=== PATIENT | female | born 1940 | race Caucasian/White ===

== ENCOUNTER 2016-12-20 20:33 | Emergency (ER) | payer MEDICARE ==
[~2016-12-20] VITALS: Ht 162.6 cm; Wt 62.0 kg
[2016-12-20 20:41] VITALS: Ht 162.6 cm; Wt 62.0 kg
[2016-12-20 21:40] LABS: ADD SCAN DIFF NO
[2016-12-20 21:42] LABS: BASOPHILS % 0.5 % (0.0-2.0); EOSINOPHILS # 0.2 10^3/ul (0.0-0.5); EOSINOPHILS % 2.8 % (0.0-7.0); HEMATOCRIT 38.2 % (37.0-47.0); HEMOGLOBIN 11.6 g/dl (12.0-16.0); LYMPHOCYTES # 1.2 10^3/ul (0.8-2.9); LYMPHOCYTES % 15.6 % (15.0-51.0); MEAN CORPUSCULAR HEMOGLOBIN 24.3 pg (29.0-33.0); MEAN CORPUSCULAR HGB CONC 30.4 g/dl (32.0-37.0); MEAN CORPUSCULAR VOLUME 80.1 fl (82.0-101.0); MEAN PLATELET VOLUME 9.9 fl (7.4-10.4); MONOCYTE # 0.5 10^3/ul (0.3-0.9); MONOCYTES % 6.4 % (0.0-11.0); NEUTROPHIL # 5.9 10^3/ul (1.6-7.5); NEUTROPHILS % 74.4 % (39.0-77.0); PLATELET COUNT 239 10^3/UL (140-415); RED BLOOD COUNT 4.77 10^6/ul (4.20-5.40); RED CELL DISTRIBUTION WIDTH 17.8 % (11.5-14.5)
[2016-12-20 21:54] LABS: ALBUMIN 4.3 g/dl (3.3-4.9)
[2016-12-20 21:55] LABS: POTASSIUM 3.8 mmol/L (3.5-5.1)
[2016-12-20 21:57] LABS: ALBUMIN/GLOBULIN RATIO 1.26; BILIRUBIN,INDIRECT 0.3 mg/dl (0-1.1); BILIRUBIN,TOTAL 0.3 mg/dl (0.2-1.3); CREATININE 1.1 mg/dl (0.44-1.00); TOTAL PROTEIN 7.7 g/dl (6.1-8.1)
[2016-12-20 21:58] LABS: CALCIUM 9.4 mg/dl (8.4-10.2)
[2016-12-20] MEDS ORDERED: SOD CHLORIDE 0.9% 500 ML IV ONE (22:00)
[2016-12-20 22:26] LABS: URINE BLOOD (Dip) POC Negative (NEGATIVE)
[2016-12-20] MEDS ORDERED: SOD CHLORIDE 0.9% 100 ML ONE (22:39)
[2016-12-20] MEDS ORDERED: IODIXANOL LOCM 100 ML BTL ONE (22:39)
--- NOTE | 2016-12-20 23:12 | RADRPT ---
PROCEDURE: CT abdomen and pelvis with intravenous contrast. CLINICAL INDICATION: Pain. TECHNIQUE: CT of the abdomen/pelvis was performed utilizing axial images with reconstructions in s agittal and coronal planes after uneventful administration of 100 cc Omnipaque 300. The administered radiation dose is CTDI 8.9 mGy, DLP 466 mGy-cm. COMPARISON: No pertinent prior examinations were submitted for comparison. FINDINGS: Visualized Chest: There is moderate cardiomegaly. Some mitral valvular calcifications are noted. Th ere is mild atelectasis within the left lower lobe. Abdomen: The spleen, pancreas, gallbladder,and adrenal glands are unremarkable. The liver is diffusely dec reased in attenuation, compatible with hepatic steatosis. Prior cholecystectomy is noted. There is a small hyperenhancing focus within the anterior aspect of the right hepatic lobe, possibly a small f lash filling hemangioma. The kidneys are without hydronephrosis. No definite urinary calculi are seen. Small bilateral renal cysts are noted. There is no evidence of bowel obstruction. The appendix is not seen. There is no evidence of acute appendicitis. No intra-abdominal free air is seen. Several diverticula are noted along the sigmoi d colon without evidence of diverticulitis. There is no evidence of intra-abdominal adenopathy or free fluid. Vascular calcifications are noted within the aorta and its branches. There is some mild ectasia of the infrarenal abdominal aorta. Th is measures up to 2.6 cm. Pelvis: Prior hysterectomy is noted. The urinary bladder is unremarkable. There is no pelvic adenopathy of free fluid. Osseous structures: Unremarkable. IMPRESSION: No acute findings. Hepatic steatosis. Sigmoid colonic diverticulosis. Mild ectasia of the infrarenal abdominal aorta. RPTAT: HIKT .Esau Carey MD, Date Time Electronically viewed and signed by .Esau Carey MD, on 12/20/2016 23:12 .T/
[2016-12-20] MEDS ORDERED: NITR-58 PO (23:32)
--- NOTE | 2016-12-20 23:52 | ERD ---
ER Documentation Chief Complaint Date/Time DATE: 12/20/16 TIME: 23:42 Chief Complaint DIARRHEA SINCE YESTERDAY AND PT FEELS LIKE RECTUM PROLAPSING HPI This is a 76-year-old female presenting to the emergency department for abdominal pain diarrhea 2 days. Patient states she was constipated therefore she took a stool softener and since then she has had diarrhea patient states she has had about 20 bowel movement since yesterday.. Patient also states that with each bowel movement she feels like something is coming out of her rectum. Patient has history of hemorrhoids and believes this could be what is coming out. Patient states she has been told that she needs a procedure done for her hemorrhoid treatment. Patient states that due to the diarrhea she feels dehydrated. Patient denies dizziness, weakness or fatigue. No fevers or chills. No back pain or chest pain. No shortness of breath or difficulty breathing. No difficulty urinating ROS All systems reviewed and are negative except as per history of present illness. Medications Home Meds Active Scripts Nitrofurantoin Monohyd Macrocr* (Macrobid*) 100 Mg Capsr, 100 MG PO BID for 5 Days, CAP Prov:NATHANAEL PHELPS NP 12/20/16 Allergies Allergies: Coded Allergies: diphenhydramine (Verified Allergy, Intermediate, 12/20/16) Penicillins (Verified Allergy, Unknown, 09/22/07) codeine (Verified Allergy, Unknown, 09/22/07) PMhx/Soc History of Surgery: Yes (CABG) Anesthesia Reaction: No Hx Neurological Disorder: No Hx Respiratory Disorders: No Hx Cardiac Disorders: Yes (HTN) Hx Psychiatric Problems: No Hx Miscellaneous Medical Probl: No Hx Alcohol Use: No Hx Substance Use: No Hx Tobacco Use: No Smoking Status: Never smoker Physical Exam Vitals Vital Signs Date Time Temp Pulse Resp B/P Pulse Ox O2 Delivery O2 Flow Rate FiO2 12/20/16 21:53 75 17 128/63 97 Room Air 12/20/16 20:41 97.4 90 18 147/73 97 Physical Exam Const: No acute distress, alert Head: Atraumatic Eyes: Normal Conjunctiva ENT: Normal External Ears, Nose and Mouth. Neck: Full range of motion..~ No meningismus. Resp: Clear to auscultation bilaterally. No wheezing, rhonchi or crackles. Cardio: Regular rate and rhythm, no murmurs Abd: Soft, non distended. Normal bowel sounds. Right lower quadrant tenderness to palpation. No rebound tenderness. Negative Ariza sign. Skin: No petechiae or rashes Back: No midline or flank tenderness Ext: No cyanosis, or edema Neur: Awake and alert Psych: Normal Mood and Affect Result Diagram: 12/20/16212812/20/162128 Results 24 hrs Laboratory Tests Test 12/20/16 21:29 12/20/16 22:24 Alanine Aminotransferase (ALT/SGPT) 17IU/L Albumin 4.3g/dl Albumin/Globulin Ratio 1.26 Alkaline Phosphatase 83IU/L Anion Gap 21 Aspartate Amino Transf (AST/SGOT) 22IU/L Basophils # 0.010^3/ul Basophils % 0.5% Blood Urea Nitrogen 20mg/dl Calcium Level 9.4mg/dl Carbon Dioxide Level 17mmol/L Chloride Level 110mmol/L Creatinine 1.10mg/dl Direct Bilirubin 0.00mg/dl Eosinophils # 0.210^3/ul Eosinophils % 2.8% Globulin 3.40g/dl Glucose Level 124mg/dl Hematocrit 38.2% Hemoglobin 11.6g/dl Indirect Bilirubin 0.3mg/dl Lipase 202U/L Lymphocytes # 1.210^3/ul Lymphocytes % 15.6% Mean Corpuscular Hemoglobin 24.3pg Mean Corpuscular Hemoglobin Concent 30.4g/dl Mean Corpuscular Volume 80.1fl Mean Platelet Volume 9.9fl Monocytes # 0.510^3/ul Monocytes % 6.4% Neutrophils # 5.910^3/ul Neutrophils % 74.4% Nucleated Red Blood Cells # 0.010^3/ul Nucleated Red Blood Cells % 0.0/100WBC Platelet Count 15306^3/UL Potassium Level 3.8mmol/L Red Blood Count 4.7710^6/ul Red Cell Distribution Width 17.8% Sodium Level 144mmol/L Total Bilirubin 0.3mg/dl Total Protein 7.7g/dl White Blood Count 8.010^3/ul Bedside Urine Blood Negative Bedside Urine Glucose (UA) Negative Bedside Urine Ketones (LAB) Negative Bedside Urine Leukocyte Esterase (L 2+ Bedside Urine Nitrite (LAB) Negative Bedside Urine Protein (LAB) Trace Bedside Urine pH (LAB) 5.5 Current Medications Medications (Trade) Dose Ordered Sig/Justice Route PRN Reason Start Time Stop Time Status Last Admin Dose Admin Sodium Chloride (NS) 500 ml @ 500 mls/hr Q1H ONCE IV 12/20/16 22:00 12/20/16 22:59 DC 12/20/16 21:51 IV Flush 10 ml 10 ml STK-MED ONCE .ROUTE 12/20/16 22:39 12/20/16 22:40 DC Sodium Chloride (NS) 100 ml @ ud STK-MED ONCE .ROUTE 12/20/16 22:39 12/20/16 22:40 DC Iodixanol (Visipaque Locm) 100 ml STK-MED ONCE .ROUTE 12/20/16 22:39 12/20/16 22:40 DC Nitrofurantoin Macrocrystals (Macrobid) 100 mg ONCE ONCE PO 12/21/16 00:00 12/21/16 00:01 12/20/16 23:38 Procedures/MDM ED COURSE: The patient was stable throughout ED course. I kept the patient and/or family informed of laboratory and diagnostic imaging results throughout the ED course. Laboratory CBC no significant infection or anemia. CMP creatinine 1.1 Lipase 202 Urine dip 2+ leukocyte esterase, trace protein Imaging CT abdomen and pelvis Patient: ANDRZEJ RIVAS : 1940 Age: 76 Sex: F MR #: [id number] DOS: 12/20/162112 Ordering MD: NATHANAEL PHELPS NP Location: [facility] Room/Bed: PROCEDURE: CT abdomen and pelvis with intravenous contrast. CLINICAL INDICATION: Pain. TECHNIQUE: CT of the abdomen/pelvis was performed utilizing axial images with reconstructions in sagittal and coronal planes after uneventful administration of 100 cc Omnipaque 300. The administered radiation dose is CTDI 8.9 mGy, DLP 466 mGy-cm. COMPARISON: No pertinent prior examinations were submitted for comparison. FINDINGS: Visualized Chest: There is moderate cardiomegaly. Some mitral valvular calcifications are noted. There is mild atelectasis within the left lower lobe. Abdomen: The spleen, pancreas, gallbladder,and adrenal glands are unremarkable. The liver is diffusely decreased in attenuation, compatible with hepatic steatosis. Prior cholecystectomy is noted. There is a small hyperenhancing focus within the anterior aspect of the right hepatic lobe, possibly a small flash filling hemangioma. The kidneys are without hydronephrosis. No definite urinary calculi are seen. Small bilateral renal cysts are noted. There is no evidence of bowel obstruction. The appendix is not seen. There is no evidence of acute appendicitis. No intra-abdominal free air is seen. Several diverticula are noted along the sigmoid colon without evidence of diverticulitis. There is no evidence of intra-abdominal adenopathy or free fluid. Vascular calcifications are noted within the aorta and its branches. There is some mild ectasia of the infrarenal abdominal aorta. This measures up to 2.6 cm. Pelvis: Prior hysterectomy is noted. The urinary bladder is unremarkable. There is no pelvic adenopathy of free fluid. Osseous structures: Unremarkable. IMPRESSION: No acute findings. Hepatic steatosis. Sigmoid colonic diverticulosis. Mild ectasia of the infrarenal abdominal aorta. MDM: 76-year-old female presents emergency department for abdominal pain and diarrhea 2 days. Patient recently took medication for constipation and since then she has had multiple bowel movements. Labs are unremarkable. Urine shows urinary tract infection. Patient also states that she feels like something is protruding outside of her rectum with each bowel movement. Patient has history of hemorrhoids and states that she needs a surgery for treatment. On rectal exam, no mass, abscess or lesions noted. Discussed findings with Dr. Reyes and we agree that patient is appropriate for outpatient management. Discussed findings of CT scan with Dr. Cordova and we agree that patient is appropriate for outpatient management and follow-up with primary care provider. Patient was given a 500 mL bolus of normal saline. Patient states pain is much improved. Vital signs are stable. Remains afebrile. Low suspicion for bowel obstruction, abscess, diverticulitis, cholecystitis, pyelonephritis or sepsis. Patient is appropriate for outpatient management will be given prescription for Macrobid. Instructed patient to follow-up with primary care provider in the next 2-3 days for reassessment. Called granddaughter, Silvana and discussed findings with her per patient's consent. Return to ED for any high fever, chest pain, difficulty breathing, shortness breath, wheezing, vomiting, diarrhea , abdominal pain or any new or worsening symptoms. Patient verbalizes understanding. All questions answered at discharge. Departure Diagnosis: Primary Impression: Abdominal pain Abdominal location: periumbilical Qualified Code: R10.33 - Periumbilical abdominal pain Additional Impression: Diarrhea Diarrhea type: unspecified type Qualified Code: R19.7 - Diarrhea, unspecified type Condition: Stable Patient Instructions: Abdominal Pain, Gastroenteritis, Viral (6Y-Adult) [facility] Usted se sousa hecho un examen mdico de control que le indica que no est en jeni condicin que requiera tratamiento urgente en el Departamento de Emergencia. Un estudio ms profundo y el tratamiento de trevizo condicin pueden esperar sin ningn riesgo hasta que usted sea atendida/o en el consultorio de trevizo mdico o jeni cl sheryl. Es responsabilidad suya arreglar jeni sheng para el seguimiento del yolanda. MANEJO DE CONDICIONES NO URGENTES EN EL FUTURO 1) Si usted tiene un mdico de atencin primaria: Usted debera llamar a trevizo mdico de atencin primaria antes de venir al departamento de emergencia. Despus de las horas de consultorio, trevizo doctor o trevizo asociado/a est disponible por telfono. El mdico o enfermero de ralph en el servicio telefnico puede asesorarle por ilan medio para atender el problema, o yolanda contrario se puede programar jeni sheng. 2) Si usted no tiene un mdico de atencin primaria: Llame al mdico o clnica de referencia que aparece abajo ysabel las horas de consultorio para hacer jeni sheng para que le vean. CLINICAS: [facility] [phone] [facility] [phone] [address] [facility] [phone] [facility]. [place] [phone] [facility]. [place] [phone] [facility]. [phone] [place] [address]. [facility] () Usnaseem se sousa hecho un examen mdico de control que le indica que no est en jeni condicin que requiera tratamiento urgente en el Departamento de Emergencia. Un estudio ms profundo y el tratamiento de trevizo condicin pueden esperar sin ningn riesgo hasta que usted sea atendida/o en el consultorio de trevizo mdico o jeni cl sheryl. Es responsabilidad suya arreglar jeni sheng para el seguimiento del yolanda. MANEJO DE CONDICIONES NO URGENTES EN EL FUTURO 1) Si usted tiene un mdico de atencin primaria: Usted debera llamar a trevizo mdico de atencin primaria antes de venir al departamento de emergencia. Despus de las horas de consultorio, trevizo doctor o trevizo asociado/a est disponible por telfono. El mdico o enfermero de ralph en el servicio telefnico puede asesorarle por ilan medio para atender el problema, o yolanda contrario se puede programar jeni sheng. 2) Si usted no tiene un mdico de atencin primaria: Llame al mdico o condado institucions de referencia que aparece abajo ysabel las horas de consultorio para hacer jeni sheng para que le vean. SI USTED NO PUEDE PAGAR PARA MAURICIO UN MEDICO puede ir a: [facility] [phone] [place] [address] [facility] [address] [place] [address] [facility] [address] [place] [address] [facility] [address] [place] [address] Additional Instructions: Llame al doctor MAANA y sang jeni SHENG PARA DENTRO DE 2-3 BUCKLEY.Dgale a la secretaria que nosotros le instruimos hacer esta sheng.Avise o llame si trevizo condicin se empeora antes de la sheng. Regresa aqui si peor o no mejor. Return to ED for any high fever, chest pain, difficulty breathing, shortness breath, wheezing, vomiting, diarrhea, abdominal pain or any new or worsening symptoms. NATHANAEL PHELPS NP Dec 20, 2016 23:52
[2016-12-20 23:59] VITALS: BP 128/68; PULSE 63; RESP 17
[2016-12-21] MEDS ORDERED: NITROFURANTOIN (SR) 100 MG CAP PO ONE
== END 2016-12-21 00:02 | disposition home or self-care (01) ==
LOC: FTE 20:33
DX: R10.33 Periumbilical pain (principal); I10 Essential (primary) hypertension; Z95.1 Presence of aortocoronary bypass graft
CPT/HCPCS: 36415; 74177; 80053; 81003; 83690; 85025; 96360; 99285; J7040; Q9967

== ENCOUNTER 2018-08-25 02:15 | Observation (INO) | END 2018-08-26 18:49 | disposition home or self-care (01) ==